=== PATIENT | male | born 1935 | race Caucasian/White ===

== ENCOUNTER 2017-12-31 18:55 | Emergency (ER) | payer OTHER ==
--- NOTE | 2017-12-31 19:07 | ED Physician Documentation ---
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: patient - HPI Stated Complaint: chest pain Chief Complaint: Chest Pain Onset: other (1 month ) Timing: resolved on arrival to ED, other (on and off with activity ) Duration: waxing, waning Last known Well Date: 12/31/17 Last Known Well Time: 20:00 Last known Well Code/Unknown Code: Unknown Context: activity Severity: moderate Quality: pressure, tightness, burning Chest Pain Radiation: no radiation Chest Pain Signs/Symptoms: denies: nausea, vomiting, diaphoresis, dizziness, dyspnea Relieved By: nothing - ROS CONST: none MS/LYMPH: none NEURO/PSYCH: none - PAST HX [place] risk factors: hyperlipidemia Neuro deficit: none GI disease: none Lung disease: none Surgeries/Procedures: none Immunizations: UTD Allergies/Adverse Reactions: Allergies Allergy/AdvReac Type Severity Reaction Status Date / Time No Known Allergies Allergy Unverified 12/31/17 20:46 Home Medications: Ambulatory Orders Medication Instructions Recorded Enalapril Maleate [Vasotec] 5 mg PO DAILY 12/31/17 Simvastatin [Zocor] 20 mg PO HS 12/31/17 - SOCIAL HX Smoking History: non-smoker Alcohol Use: none Drug Use: none - FAMILY HX Family HX: none - REVIEWED ASSESSMENTS Nursing Assessment Reviewed: Yes Vitals Reviewed: Yes Progress - Progress Progress: 1999: Sitting in bed with family at bedside. No pain at this time per his report. DG 2044: Discussed lab and results. If transfer would like to go to [facility]. 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 2047: [facility] Dr Dan accepting - pt and family agreeable to transfer DG Chest Pain Physical Exam - EXAM General Appearance: no acute distress EENT: eye inspection normal, ENT inspection normal Neck: nml inspection Respiratory: no resp. distress, chest non-tender, nml breath sounds CVS: reg. rate & rhythm, no murmur, no gallop, no friction rub Abdomen: soft, no organomegaly, normal bowel sounds Skin: warm/dry, normal color Extremities: non-tender, normal range of motion, no evidence of injury, no edema Neuro: oriented X3, CN's nml as tested, motor nml, sensation nml, mood/affect nml Discharge Clincal Impression: Chest pain Qualifiers: Chest pain type: other chest pain Qualified Code(s): R07.89 - Other chest pain Referrals: Margarito Bello MD [Primary Care Provider] - 2 Days Comments: Dr Dan accepting DG Condition: Stable Disposition: 01 HOME, SELF-CARE Decision to Admit: [id number] Date of Decison to Admit: 12/31/17 Decision Time: 20:50
[2017-12-31 19:17] LABS: BASOPHILS % 0.9 (0.0-1.5); EOSINOPHILS % 6.9 % (0.0-6.8); MEAN CORPUSCULAR HEMOGLOBIN 31.6 pg (28.0-34.0); MEAN CORPUSCULAR VOLUME 91.4 fl (80.0-100.0); MONOCYTES % 7.1 % (0.0-11.0); NEUTROPHILS # 5.4 # k/uL (1.4-7.7)
[2017-12-31 19:32] LABS: eGFR (African) > 60; eGFR (Non-African) > 60
[2017-12-31] MEDS ORDERED: ASPIRIN 81 MG CHEW TAB PO ONE (20:50)
[2017-12-31 21:07] VITALS: BP 154/71
--- NOTE | 2018-01-01 05:14 | Diagnostic Imaging Report ---
DIGNA SOLANO [facility] [address] [facility] [address] 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 There is elevation the left hemidiaphragm. The lungs are clear. There is no pleural effusion or pneumothorax identified. The osseous structures are normal. Impression: 1. No acute pulmonary disease. Electronically signed on Dec 31, 2017 7:31:21 PM MOVIE [employer] CAMER[employer] OPERATOR by: Noel VALDEZ
== END 2017-12-31 21:02 | disposition short-term general hospital (02) ==
LOC: ED 18:55
DX: R07.9 Chest pain, unspecified (principal); E78.5 Hyperlipidemia, unspecified
CPT/HCPCS: 71046; 80053; 82550; 84484; 85025; 99283; S1016